=== PATIENT | female | born 1985 | race Caucasian/White ===

== ENCOUNTER → 2017-11-15 | Outpatient (CLI) | payer OTHER ==
[~2017-11-15] MED LIST: HYDR2.5C37 TOP; LIDO5CRE10 RE; PRENTAB26 PO
== END | disposition home or self-care (01) ==
LOC: C.PAPS 14:08
PROVIDERS: ATTEND Obstetrics & Gynecology
DX: Z01.419 Encounter for gynecological examination (general) (routine) without abnormal findings (principal); N64.52 Nipple discharge

== ENCOUNTER → 2017-11-30 | Outpatient (CLI) | payer OTHER | END | disposition home or self-care (01) | LOC: C.LAB1850 07:47 | PROVIDERS: ATTEND Obstetrics & Gynecology | DX: N64.52 Nipple discharge (principal) ==

== ENCOUNTER 2021-04-29 07:54 | Inpatient (IN) ==
[2021-04-29] MEDS ORDERED: OXYTOCIN 30 UNITS/500 ML BAG IV PRN ×3 (08:13→13:20)
--- NOTE | 2021-04-29 08:36 | History & Physical Report ---
Date of Service April 29, 2021 Assessment & Plan (1) : Plan: Stable, doing well -admit to L&D, AROM by Dr. Sargent -NPO except for ice chips -IV (pit, LR, epidural) -FHTs -labs (2) Advanced maternal age (AMA) in : (3) Supervision of normal intrauterine in multigravida: (4) Migraine headache: Admission and Anticipated Discharge Date Admission Date: April 29, 2021 History of Present Illness Primary Care Provider: YE Hastings Rosa Mathis is a 35 y/o female currently at 40.6 WGA with an BELINDA 04/23/21 as determined by LMP who is here for post term induction.. + contractions; + movement; - fluid loss; + bloody show Had regular appointments with OB. Labs: Blood type: A+ Antibody screen: negative H.4 Hct: 41 WBC: 13.1 Plt: 223 Rubella: immune VDRL/RPR: nonreactive Gonorrhea: negative Chlamydia: negative HIV: negative HbSAg: negative GBS: negative Other screens: cff-DNA:low risk CF: SMA: Allergies Allergy/AdvReac Type Severity Reaction Status Date / Time No Known Drug Allergies Allergy Verified 04/28/21 10:09 Home Medications Medication Instructions Recorded Confirmed Type cetirizine 10 mg tablet (Zyrtec) 10 mg PO DAILY 01/18/20 04/29/21 History prenat.vits,coby,obt-avav-lntyp 1 tab PO DAILY 01/18/20 04/29/21 History breast pump #1 ea 01/29/21 04/28/21 Rx Patient History Medical History H/O vaginal delivery Hemorrhoids History of chicken pox Migraine headache Miscarriage of unknown anatomic location Surgical History H/O colonoscopy H/O oral surgery Family History (Updated 09/03/20 @ 09:07 by Roselyn Aldana) Father Colonic polyp Mother Hypercholesteremia Thyroid disorder Atrial fibrillation Sleep apnea Other Breast cancer Denies family history of Ovarian cancer Colorectal cancer Social History (Updated 09/03/20 @ 09:08 by Roselyn Aldana) Smoking Status: Never smoker Hx Alcohol Use: No Hx Substance Use: No Preferred Language: Hebrew Communication Ability: Effective Beliefs That Will Affect Care: None marital status: marital status details: Tate Mathis (38) [phone] Current Living Situation: Spouse Current Living Situation Comment: lives with spouse and daughter, 1 dog current occupational status: employed 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 No acute distress. Cardiac: Regular rate and rhythm, no murmurs/rubs/gallops. Respiratory: Clear to auscultation bilaterally a/p, no wheezes/rales/rhonchi. No increased work of breathing. Symmetrical chest rise. No respiratory distress. Pelvic: Dilation 6 cm; Effacement 75%; Station -[address] Sargent Lower Extremities: No lower extremity edema or swelling. No deep calf pain. Africa's negative bilaterally Baseline: Variability: Accelerations: Decelerations: Results & Data ([facility]) Vital Signs (Past 12 Hours) Vital Signs Pulse BP 04/29/21 08:08 75 128/78 Code Status & VTE Plan VTE Prophylaxis Plan VTE Prophylaxis will be ordered: Yes Supervising Physician Co-Signing Physician Notes Resident Physician Supervision Note: I interviewed and examined the patient. Discussed with Dr. Alvarado and agree with findings and plan as documented in the note. Any exceptions or clarifications are listed here: 35yowf with iup at 40 6/7 who presents for induction for postdates. Very favorable cervix. Fetus category one. Desires epidural. course uncomplicated. Plan to get epidural now and then arom. PItocin augmentation if indicated. Anticipate . Documented By: Jory Sargent MD, FACOG Resident Activity Tracking Resident Involvement: Resident Care Provided Care Provided: OB Delivery
[2021-04-29 08:58] LABS: Hematocrit (blood only) 36.1 % (37-47); Hemoglobin 12.4 g/dL (12.0-16.0); Mean Corpuscular Hemoglobin 31.1 pg (25-34); Mean Corpuscular Hgb Conc 34.3 g/dL (32-36); Mean Corpuscular Volume 90.5 fL (80-100); Mean Platelet Volume 11.7 fL (7.4-10.4); Platelet Count 144 K/uL (130-400); RDW Coefficient of Variation 13.6 % (11.5-14.5); RDW Standard Deviation 44.8 fL (36.4-46.3); Red Blood Count 3.99 M/uL (4.2-5.4); White Blood Count 10.71 K/uL (4.8-10.8)
[2021-04-29] MEDS: LACTATED RINGER'S 1,000 ML IV PRN ×2 (09:17→10:27)
[2021-04-29] MEDS ORDERED: BUPIVACAINE 0.25% 30 ML VIAL ONE (09:32)
[2021-04-29] MEDS ORDERED: SODIUM CHLORIDE 0.9% INJ 10 ML VIAL ONE (09:32)
[2021-04-29] MEDS ORDERED: ePHEDrine sulfate 50 MG/ML AMP ONE (09:32)
[2021-04-29] MEDS ORDERED: fentaNYL 2MCG/ML ROPIVACAINE 1.25MG/ML 100 ML BAG EPI ONE (09:33)
[2021-04-29] MEDS ORDERED: fentaNYL citrate 100 MCG/2 ML VIAL ONE (09:33)
[2021-04-29 09:34] LABS: CoV2 Total Antibody Positive (Negative)
--- NOTE | 2021-04-29 10:23 | Anesthesiology Consultation ---
Date of Service April 29, 2021 Assessment & Plan (1) Encounter for pre-operative examination: Chart Review Chart Review: Acceptable Risk for Labor Epidural History Height/Weight Height: 5 ft 4 in Weight: 89.811 kg Allergies Allergy/AdvReac Type Severity Reaction Status Date / Time No Known Drug Allergies Allergy Verified 04/28/21 10:09 Medications Home Medications Medication Instructions Recorded Confirmed Last Taken cetirizine 10 mg tablet (Zyrtec) 10 mg PO DAILY 01/18/20 04/29/21 Unknown prenat.vits,coby,fpw-zkjj-qoaso 1 tab PO DAILY 01/18/20 04/29/21 Unknown breast pump #1 ea 01/29/21 04/28/21 Unknown Active Medications Generic Name Dose Route Start Last Admin Trade Name Freq PRN Reason Stop Dose Admin Lactated Ringer's 1,000 mls @ 125 mls/hr 04/29/21 08:13 04/29/21 09:17 Lr IV 05/01/21 08:12 999 mls/hr .Q8H PRN Administration L&D Protocol Protocol Past Medical History Medical History H/O vaginal delivery Hemorrhoids History of chicken pox Migraine headache Miscarriage of unknown anatomic location Past Family History Family History Father Colonic polyp Mother Hypercholesteremia Thyroid disorder Atrial fibrillation Sleep apnea Other Breast cancer Denies family history of Ovarian cancer Colorectal cancer Past Surgical History Surgical History H/O colonoscopy H/O oral surgery Social History Smoking Status: Never smoker Hx Alcohol Use: No Hx Substance Use: No Physical Exam Vital Signs Last Vital Signs Temp 36.8 C 04/29/21 08:32 Pulse 63 04/29/21 10:20 Resp 18 04/29/21 08:32 BP 115/70 04/29/21 10:20 Pulse Ox 99 04/29/21 10:18 Testing Laboratory Results 04/29/21 08:28
[2021-04-29] MEDS ORDERED: NALOXONE HCL 0.4 MG/1 ML VIAL/CARP IV PRN (10:47)
[2021-04-29] MEDS ORDERED: ePHEDrine sulfate 50 MG/ML AMP IV PRN (10:47)
[2021-04-29] MEDS ORDERED: NALOXONE HCL 1 MG in SODIUM CHLORIDE 0.9% 1000ML 1,000 ML IV PRN (10:47)
[2021-04-29] MEDS ORDERED: fentaNYL 2MCG/ML ROPIVACAINE 1.25MG/ML 100 ML BAG EPI PRN (10:47)
[2021-04-29] MEDS ORDERED: ONDANSETRON INJ 2 MG/ML 2 ML VIAL IV PRN (10:47)
--- NOTE | 2021-04-29 11:38 | Labor Progress Brief Note ---
Date of Service April 29, 2021 Subjective comfortable after epidural Assessment & Plan (1) Encounter for induction of labor: Plan: s/p arom. category one fetus. anticipate . pitocin if indicated. Admission and Anticipated Discharge Date Admission Date: April 29, 2021 Physical Exam Physical Exam: cx--unchanged arom--clear toco--irregular efm--130s with mod varibiltiy, accels to 160s, no decels Results & Data ([facility]) Vital Signs (Past 12 Hours) Vital Signs Temp Pulse Resp BP Pulse Ox 04/29/21 11:34 76 135/76 04/29/21 11:33 71 99 04/29/21 11:28 80 99 04/29/21 11:26 75 129/79 04/29/21 11:24 63 120/76 04/29/21 11:23 67 99 04/29/21 11:22 65 116/72 04/29/21 11:19 68 137/79 04/29/21 11:18 68 98 04/29/21 11:16 68 118/72 04/29/21 11:14 63 130/77 04/29/21 11:13 74 97 04/29/21 11:12 70 120/69 04/29/21 11:11 68 83 L 04/29/21 11:10 65 118/55 L 04/29/21 11:08 67 96 04/29/21 11:06 67 121/71 92 04/29/21 11:04 66 115/70 04/29/21 11:03 70 98 04/29/21 11:02 67 112/71 04/29/21 11:00 68 20 120/73 04/29/21 10:58 66 117/74 99 04/29/21 10:56 76 121/72 04/29/21 10:54 70 116/66 04/29/21 10:53 73 98 04/29/21 10:52 83 113/71 04/29/21 10:50 85 110/77 04/29/21 10:48 82 112/71 98 04/29/21 10:46 65 118/75 04/29/21 10:44 63 131/84 04/29/21 10:43 63 98 04/29/21 10:42 57 L 122/72 04/29/21 10:40 68 135/97 04/29/21 10:38 70 99 04/29/21 10:33 88 100 04/29/21 10:32 71 93 04/29/21 10:30 75 133/93 04/29/21 10:28 79 99 04/29/21 10:23 70 97 04/29/21 10:20 63 115/70 04/29/21 10:18 60 99 04/29/21 10:00 20 04/29/21 09:00 18 04/29/21 08:32 36.8 C 18 04/29/21 08:30 20 04/29/21 08:08 75 128/78 Coding Level of Care Code None Diagnoses Encounter for induction of labor Z34.90
[2021-04-29] MEDS ORDERED: NURSING L&D Epidural Breakthrough Pain Update ONE (17:09)
[2021-04-29] MEDS ORDERED: oxyCODONE/ACETAMINOPHEN 5mg/325mg TAB PO PRN (17:58)
[2021-04-29] MEDS ORDERED: ACETAMINOPHEN 325 MG TAB PO PRN (17:58)
[2021-04-29] MEDS ORDERED: ceFAZolin 2000MG 2,000 MG/15 ML SYR IV STA (18:01)
--- NOTE | 2021-04-29 18:01 | Delivery Summary ---
Vaginal Delivery Summary Date of Service April 29, 2021 Pre-operative Diagnosis: at 40 6/7 weeks AMA Post-operative Diagnosis: same Procedure: epidural arom pitocin augmentation second degree laceration and repair EBL: 400cc Anesthesia: epidural Procedure: The patient pushed for 4 contractions to deliver a viable female in shamar position. A very mild shoulder dystocia encountered relieved with lola. The rest of the was then delivered without difficulty. The baby was vigorous. The nose and mouth were bulb suctioned and the was placed in the maternal abdomen for drying and attention. Cord was clamped and cut at 1.5 minutes of life. Cord blood and segment obtained. Placenta was manually extracted as there was an adherent lobe in the upper right fundus, ? heart shaped fundus? An additional sweep showed no further pocs Cervix/sulci/rectum were intact. A second degree perineal laceration was repaired in the normal standard fashion. Hemostasis obtained with dilute pitocin and fundal massage. Apgars were 8/9. Mother and baby doing well at the end of the delivery. Vaginal Delivery Summary and 2nd Degree [facility] [place] [facility] Vaginal Delivery Charge Vaginal Delivery Codes: 57107 global code for the antepartum, delivery, and post- Delivery Type Details: and 2nd Degree [facility]
--- NOTE | 2021-04-29 18:29 | Anesthesia Procedure Note ---
Date of Service April 29, 2021 Anesthesia Post Epidural Note Vital Signs Vital Signs: Temp Pulse Resp BP Pulse Ox 36.8 C 67 18 113/68 97 04/29/21 15:30 04/29/21 18:09 04/29/21 18:09 04/29/21 18:09 04/29/21 17:58 Notes Mental Status: alert / awake / arousable and participated in evaluation Nausea / Vomiting: adequately controlled Pain: adequately controlled Airway Patency, RR, SpO2: stable & adequate BP & HR: stable & adequate Hydration State: stable & adequate Neuraxial Anesthesia: was administered and sensory block is resolving Anesthetic Complications: no major complications apparent Epidural: Removed without complications and With tip intact
[2021-04-29] MEDS ORDERED: SUPERCREAM 0.870% 15 GM JAR EXT PRN (19:44)
[2021-04-29] MEDS ORDERED: BENZOCAINE 20% AER SPR 82.5 GM CAN EXT PRN (19:44)
[2021-04-29] MEDS ORDERED: BENZOCAINE 20% AER SPR 82.5 GM CAN EXT ONE (19:45)
[2021-04-29] MEDS ORDERED: SUPERCREAM 0.870% 15 GM JAR ONE (19:46)
[2021-04-29] MEDS: IBUPROFEN 600 MG TAB PO PRN (21:03)
[2021-04-29] MEDS: DOCUSATE SODIUM 100 MG CAP PO SCH (21:04)
[2021-04-30] MEDS: IBUPROFEN 600 MG TAB PO PRN ×3 (05:34→17:49)
--- NOTE | 2021-04-30 06:34 | Obstetrical Progress Note ---
Date of Service <Chin Alvarado MD - Last Filed: 04/30/21 07:21> April 30, 2021 Assessment & Plan <Chin Alvarado MD - Last Filed: 04/30/21 07:21> (1) Encounter for care and examination after delivery: Patient is stable, recovering well -encourage ambulation -regular diet -pain control as needed -Rh+, RI, GBS- -anticipate d/c tomorrow (2) : (3) Advanced maternal age (AMA) in : (4) Supervision of normal intrauterine in multigravida: (5) Migraine headache: <Jory Sargent MD, FACOG - Last Filed: 04/30/21 07:40> (1) Encounter for care and examination after delivery: (2) : (3) Advanced maternal age (AMA) in : (4) Supervision of normal intrauterine in multigravida: (5) Migraine headache: Subjective <Chin Alvarado MD - Last Filed: 04/30/21 07:21> 35 y/o female who is now PPD #1 following spontaneous vaginal delivery at 40.6 weeks. Reports feeling well overall this morning. 3/10 pain well managed on analgesics. Voiding +. Tolerating meals well and able to ambulate some. + passing gas but denies bowel movements. Some persistent lochia with improvement this morning. . Review of Systems Denies fever, chills, sweats Denies shortness of breath, difficulty breathing, chest pain, palpitations, chest pressure. Denies breast pain. Denies dysuria. Denies headache or changes in vision Review of Systems All systems reviewed & are unremarkable except as noted in HPI & below Physical Exam <Chin Alvarado MD - Last Filed: 04/30/21 07:21> General: Alert, oriented. No acute distress. Cardiac: Regular rate and rhythm, no murmurs/rubs/gallops. Respiratory: Clear to auscultation bilaterally a/p, no wheezes/rales/rhonchi. No increased work of breathing. Symmetrical chest rise. No respiratory distress. Abdomen: Soft, nontender, nondistended. Bowel sounds present. Uterus: Uterine fundus firm, palpable 2 cm below umbilicus. Lower Extremities: No lower extremity edema or swelling. No deep calf pain. Africa's negative bilaterally.. Constitutional WD/WN, vitals as above Results & Data ([facility]) <Chin Alvarado MD - Last Filed: 04/30/21 07:21> Vital Signs (Past 12 Hours) Vital Signs Temp Pulse Pulse Resp BP BP 04/30/21 03:38 36.7 C 84 16 116/58 L 04/30/21 00:30 36.4 C L 66 18 108/68 04/29/21 21:04 36.7 C 73 18 105/64 04/29/21 19:39 69 110/70 04/29/21 19:24 67 108/67 04/29/21 19:09 36.8 C 63 18 120/81 04/29/21 18:54 60 99/63 L 04/29/21 18:39 64 18 110/74 04/29/21 18:29 73 16 118/70 <Jory Sargent MD, FACOG - Last Filed: 04/30/21 07:40> Co-Signing Physician Notes Resident Physician Supervision Note: I interviewed and examined the patient. Discussed with Dr. Dr. Velasco and agree with findings and plan as documented in the note. Any exceptions or clarifications are listed here: Doing well. Routine care. Documented By: Jory Sargent MD, FACOG Resident Activity Tracking <Chin Alvarado MD - Last Filed: 04/30/21 07:21> Resident Involvement: Resident Care Provided Care Provided: OB Delivery
[2021-04-30] MEDS: DOCUSATE SODIUM 100 MG CAP PO SCH ×2 (07:54→20:52)
[2021-04-30] MEDS: PRENATAL VITAMIN 1 TAB PO SCH (07:54)
[2021-04-30 08:43] LABS: Hematocrit (blood only) 31.5 % (37-47); Hemoglobin 10.6 g/dL (12.0-16.0)
[2021-05-01] MEDS: IBUPROFEN 600 MG TAB PO PRN ×2 (00:08→08:16)
--- NOTE | 2021-05-01 06:45 | Obstetrical Progress Note ---
Date of Service <Chin Alvarado MD - Last Filed: 05/01/21 07:33> May 01, 2021 Assessment & Plan <Chin Alvarado MD - Last Filed: 05/01/21 07:33> (1) Encounter for care and examination after delivery: Patient is stable, recovering well -clinically stable -Rh+, RI, GBS- -ready for d/c -6 wk f/u outpatient (2) : (3) Advanced maternal age (AMA) in : (4) Supervision of normal intrauterine in multigravida: (5) Migraine headache: <Opal Weinstein MD, FACOG - Last Filed: 05/01/21 07:49> (1) Encounter for care and examination after delivery: (2) : (3) Advanced maternal age (AMA) in : (4) Supervision of normal intrauterine in multigravida: (5) Migraine headache: Subjective <Chin Alvarado MD - Last Filed: 05/01/21 07:33> 35 y/o female who is now PPD #2 following spontaneous vaginal delivery. Reports feeling well overall this morning. + abdominal cramping with & 1/10 pain well managed on analgesics. Voiding +. Tolerating meals well and able to ambulate. + passing gas but no bowel movements. Minimal lochia this morning. . Review of Systems Denies fever, chills, sweats + SOB (admits to brief episode of gasping for air yesterday evening. Is unsure if she was merely anxious or truly SOB, but noticed it. episode has not recurred. Is not SOB at this moment). Denies coughing or wheezing Denies chest pain, palpitations, chest pressure. Denies breast pain. Denies dysuria. Denies headache or changes in vision Review of Systems All systems reviewed & are unremarkable except as noted in HPI & below Physical Exam <Chin Alvarado MD - Last Filed: 05/01/21 07:33> General: Alert, oriented. No acute distress. Cardiac: Regular rate and rhythm, no murmurs/rubs/gallops. Respiratory: Clear to auscultation bilaterally a/p, no wheezes/rales/rhonchi. No increased work of breathing. Symmetrical chest rise. No respiratory distress. Abdomen: Soft, nontender, nondistended. Bowel sounds present. Uterus: Uterine fundus firm, palpable 7 cm below umbilicus. Lower Extremities: No lower extremity edema or swelling. No deep calf pain. Africa's negative bilaterally.. Constitutional WD/WN, vitals as above Results & Data ([facility]) <Chin Alvarado MD - Last Filed: 05/01/21 07:33> Vital Signs (Past 12 Hours) Vital Signs Temp Pulse Resp BP 05/01/21 00:44 36.4 C L 56 L 18 116/74 04/30/21 19:55 36.7 C 67 18 109/82 <Opal Weinstein MD, FACOG - Last Filed: 05/01/21 07:49> Co-Signing Physician Notes Resident Physician Supervision Note: I interviewed and examined the patient. Discussed with Dr. Alvarado and agree with findings and plan as documented in the note. Any exceptions or clarifications are listed here: [None] Documented By: Opal Weinstein MD, FACOG Resident Activity Tracking <Chin Alvarado MD - Last Filed: 05/01/21 07:33> Resident Involvement: Resident Care Provided Care Provided: OB Delivery
[2021-05-01] MEDS: PRENATAL VITAMIN 1 TAB PO SCH (08:16)
[2021-05-01] MEDS: DOCUSATE SODIUM 100 MG CAP PO SCH (08:16)
== END 2021-05-01 11:10 | disposition home or self-care (01) | DRG 806 ==
LOC: 4S1 07:54 → 4S2 20:15